=== PATIENT | male | born 1975 | race Caucasian/White ===

== ENCOUNTER 2016-05-10 17:23 | Emergency (ER) | payer OTHER ==
[2016-05-10] MEDS ORDERED: ORPHENADRINE 30 MG/ML 2 ML VIAL IM STA (19:18)
[2016-05-10] MEDS ORDERED: KETOROLAC 60 MG/2 ML VIAL IM STA (19:18)
--- NOTE | 2016-05-10 19:23 | ED ---
General Adult HPI - General Chief complaint: Back Pain/Injury Stated complaint: Back pain Time Seen by Provider: 05/10/16 19:00 Source: patient, RN notes reviewed Mode of arrival: ambulatory Limitations: no limitations - History of Present Illness Initial comments: This is a 40-year-old male who presents with symptoms of sciatica of the left leg for the last 2 days. Patient states he gets these symptoms frequently. Patient states that this is the same pain he gets every time and the pain hurts worse with sitting or lying down. Patient has no difficulty ambulating. Patient has been taking gabapentin for this pain but this has not helped. Patient states the pain is localized to the left upper leg right now. Patient denies any numbness/tingling or weakness. Patient states that steroids usually help him. Patient denies any recent fever, chills, shortness breath, chest pain , abdominal pain, nausea/vomiting/diarrhea, back pain, hematuria, headache, or visual changes, or any other complaints. - Related Data Home Medications Medication Instructions Recorded Confirmed Gabapentin [Gabapentin] 300 mg PO BID PRN 06/28/14 05/10/16 Lisdexamfetamine Dimesylate 60 mg PO QAM 05/10/16 05/10/16 [Vyvanse] Sertraline [Zoloft] 50 mg PO DAILY 05/10/16 05/10/16 Previous Rx's Medication Instructions Recorded Cyclobenzaprine [Flexeril] 5 mg PO HS 3 Days 05/10/16 predniSONE 20 mg PO DAILY 3 Days 05/10/16 Allergies Allergy/AdvReac Type Severity Reaction Status Date / Time No Known Allergies Allergy Verified 05/10/16 18:52 Review of Systems ROS Statement: Those systems with pertinent positive or pertinent negative responses have been documented in the HPI. ROS Other: All systems not noted in ROS Statement are negative. Past Medical History Additional Past Medical History / Comment(s): SCIATICA; HYPOGLYCEMIA History of Any Multi-Drug Resistant Organisms: None Reported Past Surgical History: Orthopedic Surgery Additional Past Surgical History / Comment(s): EYE SURGERY; AC JOINT REPAIR, sciatica Past Psychological History: Anxiety, Bipolar, Depression Smoking Status: Former smoker Past Alcohol Use History: None Reported Past Drug Use History: None Reported General Exam - General Exam Comments Initial Comments: General: The patient is awake and alert, in no distress, and does not appear acutely ill. Neck: The neck is supple, there is no tenderness or JVD. Cardiovascular: There is a regular rate and rhythm. No murmur, rub or gallop is appreciated. Respiratory: Lungs are clear to auscultation, respirations are non-labored, breath sounds are equal. No wheezes, stridor, rales, or rhonchi. Musculoskeletal: Tenderness to palpation of the left posterior hip in the area of the sciatic nerve. There is no pain with palpation of the spine. Full range of motion, strength 5/5 and Sensation intact. Radial pulses 2+ bilaterally. Patient is able to ambulate. Neurological: A&O x 3. CN II-XII intact, There are no obvious motor or sensory deficits. Coordination appears grossly intact. Speech is normal. Skin: Skin is warm and dry and no rashes or lesions are noted. Psychiatric: Normal mood and affect. Limitations: no limitations Course Vital Signs 05/10/16 05/10/16 17:31 19:40 Temperature 97.5 F L 97.3 F L Pulse Rate 80 76 Respiratory 20 14 Rate Blood Pressure 110/72 119/65 O2 Sat by Pulse 99 97 Oximetry Medical Decision Making - Medical Decision Making This is a 40-year-old male presents with chronic symptoms of sciatica of the left leg. On physical exam patient is neurologically intact. Tenderness to palpation of the left posterior hip in the area of the sciatic nerve. There is no pain with palpation of the spine. Full range of motion, strength 5/5 and Sensation intact. Radial pulses 2+ bilaterally. Patient is able to ambulate. Discussed that patient will receive a prescription for steroids and Flexeril. I discussed sedation effects. Discussed stretches that can be helpful with sciatica pain. Patient was aware of these as he has chronic symptoms. I discussed the patient is to follow-up with his primary care physician in one to 2 days or return to the [facility] for any worsening symptoms or for any further concerns. Patient was receptive to this plan and patient will be discharged home. Disposition Clinical Impression: Sciatica Disposition: HOME SELF-CARE Condition: Good Instructions: Sciatica (ED) Additional Instructions: Please use prednisone and Flexeril as prescribed. Please do not drink alcohol or drive while using Flexeril causes drowsiness. Please follow-up with her primary care physician in 1-2 days or return to the [facility] for any worsening symptoms or for any further concerns. Prescriptions: Cyclobenzaprine [Flexeril] 5 mg PO HS 3 Days predniSONE 20 mg PO DAILY 3 Days Referrals: None,Stated [Primary Care Provider] - 1-2 days Glendy Mari MD [STAFF PHYSICIAN] - 1-2 days Time of Disposition: 19:24
[2016-05-10 19:49] VITALS: BP 119/65; PULSE 76; RESP 14; TEMP 97.3
== END 2016-05-10 19:45 | disposition home or self-care (01) ==
LOC: EC 17:23
DX: M54.32 Sciatica, left side (principal); F32.9 Major depressive disorder, single episode, unspecified; F41.9 Anxiety disorder, unspecified; Z87.891 Personal history of nicotine dependence; Z79.899 Other long term (current) drug therapy
CPT/HCPCS: 96372 ×2; 99283 ×2; 99284; J2360; J1885

== ENCOUNTER 2016-06-19 19:04 | Emergency (ER) | payer OTHER ==
[2016-06-19] MEDS ORDERED: ORPHENADRINE 30 MG/ML 2 ML VIAL IM STA (19:40)
[2016-06-19] MEDS ORDERED: methylPREDNISolone SOD SUCCI 125 MG/2 ML VIAL IM ONE (19:40)
[2016-06-19 20:30] LABS: Appearance,Urine Clear (Clear); Bilirubin,Urine Negative (Negative); Glucose,Urine (UA) Negative (Negative); Ketones,Urine Negative (Negative); Leukocyte Esterase,Urine Negative (Negative); Nitrite,Urine Negative (Negative); Protein,Urine Negative (Negative); Specific Gravity,Urine 1.004 (1.001-1.035); UA Billing (MACRO vs. MICRO) CHEM; Urobilinogen,Urine <2.0 mg/dL (<2.0)
--- NOTE | 2016-06-19 20:57 | ED ---
Back Pain HPI - General Chief Complaint: Back Pain/Injury Stated Complaint: back pain Time Seen by Provider: 06/19/16 19:16 Source: patient, RN notes reviewed Limitations: no limitations - History of Present Illness Initial Comments: 40-year-old male presented to the ER with acute exacerbation of his chronic sciatica. He states that it has been worsening and the Flexeril and prednisone that he was given ER 2 weeks ago are not helping. He states that the pain radiates down his left buttocks thigh and leg. He also states that he has had dark urine the color of tea and some mild burning at the end of his stream. He states that he has not been sexually active in approximately 1 year. At that time it was unprotected. He denies any constitutional symptoms including nausea , vomiting, abdominal pain, diarrhea, loss of bladder or bowel control, headache. - Related Data Home Medications Medication Instructions Recorded Confirmed Gabapentin [Gabapentin] 300 mg PO BID PRN 06/28/14 05/10/16 Lisdexamfetamine Dimesylate 60 mg PO QAM 05/10/16 05/10/16 [Vyvanse] Sertraline [Zoloft] 50 mg PO DAILY 05/10/16 05/10/16 Previous Rx's Medication Instructions Recorded Cyclobenzaprine [Flexeril] 5 mg PO HS 3 Days 05/10/16 predniSONE 20 mg PO DAILY 3 Days 05/10/16 Allergies Allergy/AdvReac Type Severity Reaction Status Date / Time No Known Allergies Allergy Verified 06/19/16 19:10 Review of Systems ROS Statement: Those systems with pertinent positive or pertinent negative responses have been documented in the HPI. ROS Other: All systems not noted in ROS Statement are negative. Past Medical History Past Medical History: Diabetes Mellitus Additional Past Medical History / Comment(s): SCIATICA; HYPOGLYCEMIA History of Any Multi-Drug Resistant Organisms: None Reported Past Surgical History: Orthopedic Surgery Additional Past Surgical History / Comment(s): EYE SURGERY; AC JOINT REPAIR Past Psychological History: Anxiety, Bipolar, Depression Smoking Status: Former smoker Past Alcohol Use History: None Reported Past Drug Use History: None Reported General Exam Limitations: no limitations General appearance: alert, in no apparent distress Head exam: Present: atraumatic, normocephalic Eye exam: Present: normal appearance, PERRL, EOMI Pupils: Present: normal accommodation, irregular Neck exam: Present: normal inspection, full ROM Respiratory exam: Present: normal lung sounds bilaterally Cardiovascular Exam: Present: regular rate, normal rhythm Extremities exam: Present: normal inspection, other (Positive straight leg test left. Otherwise normal exam of the lower extremities. Negative Manuel test.) Back exam: Present: normal inspection, other (Decreased range of motion.) Neurological exam: Present: alert, oriented X3, CN II-XII intact Psychiatric exam: Present: normal affect, normal mood Skin exam: Present: warm, dry, intact Course Vital Signs 06/19/16 19:07 Temperature 97.3 F L Pulse Rate 95 Respiratory 16 Rate Blood Pressure 129/95 O2 Sat by Pulse 98 Oximetry Medical Decision Making - Medical Decision Making 40 male presented to the ER with acute on chronic back pain. He stated that his sciatica was flaring. Upon examination he did have a positive straight leg test however he knew the results test prior to me administering it. Negative Manuel's test. Patient was given a Norflex and Solu-Medrol injection to help with the inflammation and acute on chronic sciatic pain. The patient did state that he did have dark urine and some burning with urination over the past couple weeks. A urinalysis was rants and this was within normal limits. The urine was also normal color today on submission of sample. Patient was encouraged to continue with hydration as this appears to be the root cause of the dark in color of the urine. Results of the chlamydia and gonorrhea were not yet available however there were no leukocytes in the urine and patient will be notified of any abnormal labs this week. The patient also stated that he has not been sexually active in approximately one year however it was unprotected at that time and this is why decided to test for chlamydia and gonorrhea today. Patient stopped his primary care physician for refills on any chronic medications. Due to injections today should not take oral Flexeril for 24 hours. Patient has had prior MRIs and has known disc issues from L3 to S2. Encouraged him to follow up with primary care physician to possibly initiate physical therapy or or so or neural involvement. All questions were answered and patient was agreeable to treatment plan today. Disposition Clinical Impression: Sciatica Disposition: HOME SELF-CARE Condition: Good Instructions: Acute Low Back Pain (ED), Chronic Back Pain (ED) Additional Instructions: To follow-up with primary care physician this week. Return to the ER if any worsening symptoms or concerns. Referrals: Aldair Thomas MD [Primary Care Provider] - 1-2 days Time of Disposition: 20:58
[2016-06-19 21:11] VITALS: BP 118/78; PULSE 86; RESP 20; TEMP 98.4
== END 2016-06-19 21:10 | disposition home or self-care (01) ==
LOC: EC 19:04
DX: M54.30 Sciatica, unspecified side (principal); F31.9 Bipolar disorder, unspecified; F41.9 Anxiety disorder, unspecified; Z87.891 Personal history of nicotine dependence; Z79.899 Other long term (current) drug therapy
CPT/HCPCS: 81003; 87491; 87591; 99283; 96372 ×2; J2360; J2930

== ENCOUNTER 2016-11-01 01:05 | Emergency (ER) | payer OTHER ==
--- NOTE | 2016-11-01 02:25 | ED ---
General Adult HPI - General Chief complaint: Psychiatric Symptoms Stated complaint: Mental Health Time Seen by Provider: 11/01/16 01:19 Source: patient, EMS, RN notes reviewed Mode of arrival: EMS Limitations: no limitations - History of Present Illness Initial comments: 41-year-old male presents for psychiatric evaluation. Patient's roommate called the police stating that the patient was suicidal. He has not been taking his medications appropriately. Patient does state he does take his medications intermittently. Denies suicidal ideation. He reports that his roommate is the problem. Denies homicidal ideation. Denies hallucinations. Patient takes Zoloft, gabapentin, and medication for ADHD. He does follow with a psychiatrist regularly. He does have previous psychiatric admissions in the past. - Related Data Home Medications Medication Instructions Recorded Confirmed Gabapentin [Gabapentin] 300 mg PO BID PRN 06/28/14 06/19/16 Lisdexamfetamine Dimesylate 60 mg PO QAM 05/10/16 06/19/16 [Vyvanse] Sertraline [Zoloft] 50 mg PO DAILY 05/10/16 06/19/16 Previous Rx's Medication Instructions Recorded Cyclobenzaprine [Flexeril] 5 mg PO HS 3 Days 05/10/16 predniSONE 20 mg PO DAILY 3 Days 05/10/16 Allergies Allergy/AdvReac Type Severity Reaction Status Date / Time No Known Allergies Allergy Verified 06/19/16 19:10 Review of Systems ROS Statement: Those systems with pertinent positive or pertinent negative responses have been documented in the HPI. ROS Other: All systems not noted in ROS Statement are negative. Past Medical History Past Medical History: Diabetes Mellitus Additional Past Medical History / Comment(s): SCIATICA; HYPOGLYCEMIA History of Any Multi-Drug Resistant Organisms: None Reported Past Surgical History: Orthopedic Surgery Additional Past Surgical History / Comment(s): EYE SURGERY; AC JOINT REPAIR Past Psychological History: Anxiety, Bipolar, Depression Smoking Status: Former smoker Past Alcohol Use History: None Reported Past Drug Use History: None Reported General Exam Limitations: no limitations General appearance: alert, in no apparent distress Head exam: Present: atraumatic, normocephalic Eye exam: Present: normal appearance, PERRL ENT exam: Present: normal exam, mucous membranes dry Neck exam: Present: normal inspection. Absent: tenderness, meningismus Respiratory exam: Present: normal lung sounds bilaterally. Absent: respiratory distress Cardiovascular Exam: Present: regular rate, normal rhythm GI/Abdominal exam: Present: soft. Absent: distended, tenderness, guarding Extremities exam: Present: normal inspection, full ROM. Absent: tenderness Neurological exam: Present: alert, oriented X3, CN II-XII intact. Absent: motor sensory deficit Psychiatric exam: Present: normal affect, normal mood. Absent: homicidal ideation, suicidal ideation Skin exam: Present: warm, dry Course Vital Signs 11/01/16 01:23 Temperature 97.9 F Pulse Rate 80 Respiratory 18 Rate Blood Pressure 148/87 O2 Sat by Pulse 98 Oximetry - Reevaluation(s) Reevaluation #1: 11/01/16 03:47 Patient was evaluated by [facility] Medical Decision Making - Medical Decision Making Patient was evaluated by [facility] after being medically cleared. Patient denied suicidal ideation to the [facility] nurse as well as to myself. The case was discussed with psychiatry. He does have good outpatient follow-up. This was likely related to a dispute between himself and his roommate. Patient does not require psychiatric admission at this time. Patient will be discharged home with outpatient psychiatric follow-up. Diagnosis: Depression Disposition Clinical Impression: Depression Disposition: HOME SELF-CARE Condition: Good Instructions: Depression (ED) Referrals: Aldair Thomas MD [Primary Care Provider] - 1-2 days Time of Disposition: 03:53
[2016-11-01 04:20] VITALS: BP 138/80; PULSE 78; RESP 16; TEMP 98
== END 2016-11-01 04:21 | disposition home or self-care (01) ==
LOC: EC 01:05
DX: F32.9 Major depressive disorder, single episode, unspecified (principal); R45.851 Suicidal ideations; F41.9 Anxiety disorder, unspecified; Z87.891 Personal history of nicotine dependence; Z79.899 Other long term (current) drug therapy
CPT/HCPCS: 80306; 82075; 99284

== ENCOUNTER → 2017-05-12 | Outpatient (CLI) | payer OTHER ==
--- NOTE | 2017-05-12 09:10 | FL ---
EXAMINATION TYPE: FL UGI air w esophagus DATE OF EXAM: 05/12/2017 COMPARISON: NONE HISTORY: Heartburn or epigastric pain for 3 weeks. Recently started reflux medication yesterday. Hist ory of chronic constipation. TECHNIQUE: A double contrast UGI study is performed. A total of 57 seconds of fluoroscopic time was utilized during procedure. 26 spot images are saved. FINDINGS: Assistant Director Of Admissions image of the abdomen shows no gross abnormality. The esophagus shows normal motility and emptying into the stomach during upright drinking. Some dysmo tility is seen during prone drinking through a straw. No evidence of fixed hiatal hernia or stricture noted. The stomach shows normal distensibility, peristalsis, and mucosal folds. No evidence of any mass or ulcer disease. Few episodes of gastroesophageal reflux were identified.. The duodenal bulb, sweep, and proximal small bowel loops are unremarkable. IMPRESSION: Occasional gastroesophageal reflux otherwise fairly unremarkable study.
--- NOTE | 2017-05-12 11:18 | US ---
EXAMINATION TYPE: US gallbladder DATE OF EXAM: 05/12/2017 COMPARISON: NONE CLINICAL HISTORY: R10.13 Epigastric Pain K21.9 Gastro Esophogeal. EXAM MEASUREMENTS: Liver Length: 16.3 cm Gallbladder Wall: 0.2 cm CBD: 0.2 cm Right Kidney: 11.3 x 4.3 x 4.9 cm Patient had extensive overlying midline bowel gas. Pancreas: portion of head and most of tail obscured by bowel gas, portions visualized wnl Liver: mild increased attenuation, decreased visualization of vessels Gallbladder: appeared wnl, however midline bowel gas made viewing difficult Evidence for sonographic Patel's sign: no CBD: wnl Right Kidney: wnl IMPRESSION: 1. Increased attenuation to the liver is nonspecific and be seen with fatty infiltration or hepatitis . Correlate clinically.
== END ==
LOC: RADUSMAIN 07:34
PROVIDERS: ATTEND Family Medicine
DX: R93.3 Abnormal findings on diagnostic imaging of other parts of digestive tract (principal); K21.9 Gastro-esophageal reflux disease without esophagitis; R10.13 Epigastric pain
CPT/HCPCS: 74246; 76705

== ENCOUNTER 2017-07-11 13:02 | Day surgery (SDC) | payer OTHER ==
[2017-07-11] MEDS ORDERED: LACTATED RINGERS 1,000 ML IV ONE (13:53)
[2017-07-11 13:56] VITALS: RESP 18; TEMP 97.7
[2017-07-11] MEDS ORDERED: ONDANSETRON 4 MG/2 ML VIAL IVP ONE (14:02)
[2017-07-11] MEDS ORDERED: SCOPOLAMINE 1.5MG/72HR PATCH TRANSDERM ONE (14:02)
[2017-07-11] MEDS ORDERED: LIDOCAINE 1% INJ 10MG/ML (20 ML MDV) ONE (14:30)
[2017-07-11] MEDS ORDERED: GLYCOPYRROLATE 0.2 MG/ML 2 ML VIAL ONE (14:30)
[2017-07-11] MEDS ORDERED: PROPOFOL 10 MG/ML 20 ML VIAL IV ONE (14:30)
[2017-07-11] MEDS ORDERED: LIDOCAINE 1% 20 ML VIAL (10MG/ML) FOR IV START INTRADERMA PRN (14:49)
[2017-07-11] MEDS ORDERED: LACTATED RINGERS 1,000 ML IV SCH (14:49)
--- NOTE | 2017-07-11 14:53 | P.PCN ---
Date of Procedure: 07/11/17 Procedure(s) Performed: Procedure: Esophagogastroduodenoscopy and biopsy. Preoperative diagnosis: Reflux symptoms and dark stools. Postoperative diagnosis: 1. Hiatal hernia with no obvious esophagitis or complicated reflux disease. 2. Mild antral gastritis and duodenitis with no ulcers, gastric outlet obstruction or bleeding. 3. Biopsies obtained from the duodenum, antrum and esophagus. Preparation sedation: Was provided by anesthesia. Brief clinical history: The patient is a 41-year-old male who is scheduled for this evaluation because of reflux type symptoms and dark stools that started in May of this year. Prior to that, he would have occasional heartburn and reflux and he would use milk to relieve his symptoms. Currently, he is on omeprazole. This evaluation is to assess for peptic ulcer disease, complicated reflux disease or other pathology. Procedure: With the patient on his left lateral decubitus position and after informed consent and adequate sedation, I passed the Olympus-GIF 160 video upper endoscope through the cricopharyngeus down the esophagus. GE junction was around 41 cm from the incisors and there was a 1-2 cm sliding hiatal hernia. The esophagus did not show any obvious esophagitis or complicated reflux disease. The endoscope was then passed into the stomach which was insufflated with air and inspected in detail including the retroflex view in the cardia. There was some mottling and erythema in the antrum and a fading erosion or 2 but no ulcers or bleeding. No pyloric channel ulcers. Duodenal bulb showed similar findings of erythema and few fading erosions but no ulcers or bleeding. Post bulbar area and descending duodenum appeared within normal limits. There was no evidence of bleeding or gastric outlet obstruction. I obtained biopsies from the duodenum, antrum and esophagus then the endoscope was withdrawn. The patient tolerated the procedure well. Plan: The patient was reassured. Will await biopsy results. In the meantime, he will continue with omeprazole. Further plans will be made based on his course and biopsy results. He will follow up with you as planned and we would keep you updated on his progress.
[2017-07-11 14:55] LABS: Glucose,Whole Blood 91 mg/dL (75-99)
[2017-07-11 15:08] VITALS: BP 107/77; PULSE 83
== END 2017-07-11 15:30 | disposition home or self-care (01) ==
LOC: ORWHC2ENDO 13:02
DX: K21.0 Gastro-esophageal reflux disease with esophagitis (principal); K29.50 Unspecified chronic gastritis without bleeding; K44.9 Diaphragmatic hernia without obstruction or gangrene; K29.80 Duodenitis without bleeding; G47.00 Insomnia, unspecified; E11.9 Type 2 diabetes mellitus without complications; F41.9 Anxiety disorder, unspecified; F31.9 Bipolar disorder, unspecified; F90.9 Attention-deficit hyperactivity disorder, unspecified type; Z79.899 Other long term (current) drug therapy; Z79.52 Long term (current) use of systemic steroids; Z91.09 Other allergy status, other than to drugs and biological substances
CPT/HCPCS: 88305; 43239; J2405; J2001; J2704

== ENCOUNTER 2018-02-19 06:23 | Emergency (ER) | payer OTHER ==
[2018-02-19] MEDS ORDERED: IPRATROPIUM-ALBUTEROL 3 ML NEB INHALATION STA (07:12)
--- NOTE | 2018-02-19 07:16 | ED ---
URI HPI - General Chief Complaint: Upper Respiratory Infection Stated Complaint: sore throat Time Seen by Provider: 02/19/18 07:04 Source: patient, RN notes reviewed Mode of arrival: ambulatory Limitations: no limitations - History of Present Illness Initial Comments: 42-year-old male presents emergency Department chief complaint cough and cold like symptoms for one month. Patient states that she has tried multiple over- the-counter cough and cold medications with no relief. Patient reports no fever or chills. Patient states that he has a cough that is productive with phlegm. He is a former smoker. He denies any asthma or COPD. Patient states she does have some nasal congestion and mild sore throat. Patient reports no headache no dizziness no chest pain, nausea, vomiting, diarrhea constipation. - Related Data Home Medications Medication Instructions Recorded Confirmed Gabapentin 300 mg PO BID PRN 06/28/14 06/19/16 Lisdexamfetamine Dimesylate 70 mg PO QAM 07/11/17 07/11/17 [Vyvanse] ALPRAZolam [Xanax] 0.25 mg PO DAILY PRN 02/19/18 02/19/18 Previous Rx's Medication Instructions Recorded Amoxicillin/Potassium Clav 1 tab PO Q12HR #20 tab 02/19/18 [Augmentin 875-125 Tablet] predniSONE 50 mg PO DAILY #5 tab 02/19/18 Allergies Allergy/AdvReac Type Severity Reaction Status Date / Time bupropion [From Wellbutrin] AdvReac Nausea & Verified 02/19/18 08:04 Vomiting Review of Systems ROS Statement: Those systems with pertinent positive or pertinent negative responses have been documented in the HPI. ROS Other: All systems not noted in ROS Statement are negative. Past Medical History Past Medical History: Diabetes Mellitus Additional Past Medical History / Comment(s): SCIATICAR/T SPINAL DEGENERATION; HYPOGLYCEMIA, INSOMNIA History of Any Multi-Drug Resistant Organisms: None Reported Past Surgical History: Orthopedic Surgery Additional Past Surgical History / Comment(s): EYE SURGERY; AC JOINT REPAIR Past Psychological History: Anxiety, Bipolar, Depression Smoking Status: Former smoker Past Alcohol Use History: None Reported Past Drug Use History: None Reported General Exam Limitations: no limitations General appearance: alert, in no apparent distress Head exam: Present: atraumatic, normocephalic, normal inspection Eye exam: Present: normal appearance, PERRL, EOMI. Absent: scleral icterus, conjunctival injection, periorbital swelling ENT exam: Present: mucous membranes moist, TM's normal bilaterally, normal external ear exam. Absent: normal exam, normal oropharynx (Postnasal drainage) Neck exam: Present: normal inspection, full ROM. Absent: tenderness, meningismus, lymphadenopathy Respiratory exam: Present: wheezes. Absent: respiratory distress, rales, rhonchi, stridor Cardiovascular Exam: Present: regular rate, normal rhythm, normal heart sounds. Absent: systolic murmur, diastolic murmur, rubs, gallop, clicks Course Vital Signs 02/19/18 02/19/18 02/19/18 06:26 06:37 07:30 Temperature 98 F Pulse Rate 95 92 Respiratory 18 18 Rate Blood Pressure 100/61 O2 Sat by Pulse 96 Oximetry 02/19/18 07:39 Temperature Pulse Rate 96 Respiratory Rate Blood Pressure O2 Sat by Pulse Oximetry Medical Decision Making - Medical Decision Making 42-year-old male presented for cough cold like symptoms for one month. Patient had a chest x-ray which is negative for infiltrate. Patient does have acute sinusitis acute bronchitis we treated with Augmentin, prednisone. Patient is advised take [id number] decongestant and will follow-up PCP return parameters were discussed. Disposition Clinical Impression: Bronchitis, Sinusitis Disposition: HOME SELF-CARE Condition: Stable Instructions: Upper Respiratory Infection (ED) Additional Instructions: Please return to the Emergency Department if symptoms worsen or any other concerns. Prescriptions: Amoxicillin/Potassium Clav [Augmentin 875-125 Tablet] 1 tab PO Q12HR #20 tab predniSONE 50 mg PO DAILY #5 tab Is patient prescribed a controlled substance at d/c from ED?: No Referrals: [facility] [Primary Care Provider] - 1-2 days Time of Disposition: 08:07
--- NOTE | 2018-02-19 07:31 | XR ---
EXAMINATION TYPE: XR chest 2V DATE OF EXAM: 02/19/2018 COMPARISON: 05/23/2015 INDICATION: Cough, sore throat TECHNIQUE: Frontal and lateral views of the chest are obtained. FINDINGS: The heart size is normal. The pulmonary vasculature is normal. The lungs are clear. IMPRESSION: 1. No acute pulmonary process.
[2018-02-19 08:46] VITALS: BP 105/69; PULSE 66; RESP 17; TEMP 98.3
== END 2018-02-19 08:45 | disposition home or self-care (01) ==
LOC: EC 06:23
DX: J20.9 Acute bronchitis, unspecified (principal); J01.90 Acute sinusitis, unspecified; F41.9 Anxiety disorder, unspecified; Z87.891 Personal history of nicotine dependence; Z98.890 Other specified postprocedural states; Z79.899 Other long term (current) drug therapy; Z88.8 Allergy status to other drugs, medicaments and biological substances
CPT/HCPCS: 71046; 94640; 99283

== ENCOUNTER → 2018-10-03 | Outpatient (CLI) | payer OTHER ==
--- NOTE | 2018-10-19 10:10 | P.STRESS ---
- Stress Test Note Stress Test Results/Findings: Exam Performed: Exam Date: Reason for Exam: Height: Weight: Protocol: Stage: Duration of Exercise: Resting Heart Rate: Resting Blood Pressure: Maximum Achieved Heart Rate: Maximum Achieved Blood Pressure: 85% PMHR: 100% PMHR: METS: Technologist Comment: Stress Test Results/Findings: Event monitor shows sinus rhythm, normal heart rates, sinus tachycardia, 1 short run of nonsustained atrial tachycardia, no significant bradycardia no pauses
--- NOTE | 2018-10-19 14:56 | EM ---
Results/Findings: Event monitor shows sinus rhythm, normal heart rates, sinus tachycardia, 1 short run of nonsustained atrial tachycardia, no significant bradycardia no pauses MTDD
== END | disposition home or self-care (01) ==
LOC: RADECHMAIN 14:33
PROVIDERS: ATTEND Internal Medicine Cardiovascular Disease
DX: R00.0 Tachycardia, unspecified (principal)
CPT/HCPCS: 93270

== ENCOUNTER → 2019-02-05 | Outpatient (CLI) | payer OTHER ==
--- NOTE | 2019-02-05 15:37 | CONS ---
CONSULTATION Consultation note sent over by Dr. Faith. This is a 44-year-old male patient who was referred to me for sleep evaluation. The patient has multiple complaints regarding his sleep. In fact, a lot of things that he stated is this somewhat contradictory. In summary, the patient has poor sleep hygiene. He goes to bed around 10 p.m., and it takes him a few minutes to fall asleep. However, his sleep is fragmented and he wakes up constantly in the middle of the night. He states that he is averaging around 3 hours of sleep; however, he ultimately gets out of bed at around 9 o'clock in the morning. He reports excessive fatigue and sleepiness during the day. Takes naps during the day. He snores at nighttime and he has the urge to urinate during bedtime. He wakes up with dry mouth. Occasional nighttime palpitation occasional nighttime sleep talking. He has chronic anxiety chronic positive memory and concentration are chronic problems with depression he is very worried about his increased sleepiness. He has chronic arthritis and chronic migraines. He has also had issues with irregular heartbeats and palpitations and currently the patient is wearing a loop recorder. PAST MEDICAL HISTORY: 1. OA. 2. Chronic back pain. 3. Headaches. 4. Chronic anxiety/depression. PAST SURGICAL HISTORY: Includes right eye surgery. Left shoulder surgery for the AC joint. DRUG ALLERGIES: WELLBUTRIN. OUTPATIENT MEDICATION: Includes Fioricet p.r.n., gabapentin 300 mg p.r.n., omeprazole 20 mg p.o. q. daily, Ibuprofen 800 mg on a p.r.n. basis. SOCIAL HISTORY: Nonsmoker, no alcohol. No history of IV drugs. FAMILY HISTORY: Father with obstructive sleep apnea. REVIEW OF SYSTEMS: A 14-point review of system was done. Positive findings are mentioned above in history of present illness. The patient has no nighttime , chest pain, shortness of breath. He has occasional palpitation. He is taking naps during the day. He does not fall asleep while driving. PHYSICAL EXAMINATION: BP is 101/74, pulse 74, respirations 16, temperature 98, saturation is 97% on room air. BMI is 26.1, actual height is 199 inches, neck size 15.5 inch. GENERAL APPEARANCE: Calm, comfortable, head is atraumatic, normocephalic. NECK: Supple. Mallampati Class 1. There is no goiter or neck masses. Very poor dental condition. LUNGS: Clear to auscultation. HEART: Heart sounds are regular rate and rhythm. Normal S1, S2. No S3, S4. No murmurs. ABDOMEN: Soft, nontender. No organomegaly. EXTREMITIES: No edema. No cyanosis or clubbing. NEUROLOGIC: Awake and alert. There are no focal neurological deficits. IMPRESSION: 1. Suspect obstructive sleep apnea. Patient has increased somnolence and sleepiness during the day. Has sleep fragmentation along with snoring. He reports limited number of hours of affective sleep and he is very much tired and sleepy and fatigued during the day. [place] score is at 20. 2. OA. 3. Chronic back pain. 4. Headaches. 5. Chronic anxiety/depression. PLAN: 1. Proceed with PSG and if secondary MSLT. 2. Implement good sleep hygiene measures and this was discussed with the patient at length. 3. Adequate pain control. 4. We will continue to follow and make further recommendations based on the results of the sleep study. MMODL / IJN: [id number] /
== END | disposition home or self-care (01) ==
LOC: SLEEP 13:07
PROVIDERS: ATTEND Internal Medicine Critical Care Medicine
DX: R06.83 Snoring (principal); G89.29 Other chronic pain; M54.9 Dorsalgia, unspecified; R51 Headache; R53.83 Other fatigue; M19.90 Unspecified osteoarthritis, unspecified site
CPT/HCPCS: 99211

== ENCOUNTER → 2021-12-14 | Outpatient (CLI) | payer OTHER ==
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
== END ==
LOC: SLEEP 15:19
PROVIDERS: ATTEND Internal Medicine Critical Care Medicine
DX: G47.10 Hypersomnia, unspecified (principal); F41.9 Anxiety disorder, unspecified; F32.A Depression, unspecified; G89.29 Other chronic pain; M54.9 Dorsalgia, unspecified; R51.9 Headache, unspecified

== ENCOUNTER → 2024-05-30 | Outpatient (CLI) | payer OTHER ==
[2024-05-30 18:55] LABS: Urine Alcohol Negative (Negative)
[2024-05-30 18:56] LABS: Urine Barbiturate Negative (Negative); Urine Cocaine Negative (Negative); Urine Methadone Negative (Negative); Urine Opiates Negative (Negative); Urine Phencyclidine Negative (Negative)
== END | disposition home or self-care (01) ==
LOC: LABWHC1 12:11
PROVIDERS: ATTEND Internal Medicine Critical Care Medicine
DX: Z79.899 Other long term (current) drug therapy (principal)
CPT/HCPCS: 80306